=== PATIENT | female | born 1995 | race African-American/Black ===

== ENCOUNTER 2023-07-06 09:20 | Emergency (ER) | payer OTHER ==
[~2023-07-06] VITALS: Ht 172.7 cm; Wt 67.0 kg
[2023-07-06 09:25] VITALS: BP 110/77; PULSE 109; RESP 17; TEMP 98.6; O2SAT 100
[2023-07-06] MEDS ORDERED: PENI500T MT (09:42)
[2023-07-06] MEDS ORDERED: DEXAMETHASONE 0.5MG/5ML ORAL SYR PO ONE (09:45)
[2023-07-06] MEDS ORDERED: AMOXICILLIN 500 MG CAPSULE PO ONE (09:45)
[2023-07-06] MEDS ORDERED: IBUPROFEN 800MG TABLET PO ONE (09:45)
[2023-07-06] MEDS ORDERED: DEXAMETHASONE 10 MG/ML VIAL PO NR (10:15)
[2023-07-06] MEDS ORDERED: AMOXICILLIN 50MG/ML ORAL SYR PO ONE (11:00)
[2023-07-06] MEDS ORDERED: IBUP-2458 MT (12:00)
[2023-07-06] MEDS ORDERED: PENI250S3 MT (12:00)
== END 2023-07-06 11:37 | disposition home or self-care (01) ==
LOC: ER 10:09
DX: J02.9 Acute pharyngitis, unspecified (principal); R51.9 Headache, unspecified
CPT/HCPCS: 99283; J1100; Z7610; J8540